=== PATIENT | male | born 1955 | race Caucasian/White ===

== ENCOUNTER 2018-08-05 09:08 | Outpatient (REF) | payer OTHER, SELFPAY ==
[2018-08-05 13:28] LABS: Anion Gap 5.6 mmol/L (3-11); BUN 22 mg/dL (7-18); CO2 30.4 mmol/L (21.0-32.0); CREATININE 0.94 mg/dL (0.70-1.30); Calcium 8.8 mg/dL (8.5-10.1); Chloride 104 mmol/L (98-107); Glucose 109 mg/dL (70-100); Potassium 4.1 mmol/L (3.5-5.1); Sodium 140 mmol/L (136-145)
== END 2018-08-05 09:28 ==
LOC: NCHCN 09:08
PROVIDERS: PCP Family Medicine; Visit Provider Family Medicine
DX: R73.01 Impaired fasting glucose (principal); I10 Essential (primary) hypertension
CPT/HCPCS: 80048

== ENCOUNTER 2018-12-28 16:15 | Emergency (ER) | payer OTHER, SELFPAY ==
[2018-12-28] VITALS (40 sets, daily range): BP systolic 118–149; BP diastolic 52–107; PULSE 63–95; RESP 10–23; TEMP 36.8–37.4; O2SAT 91–98
--- NOTE | 2018-12-28 16:11 | DI.RAD_ITS ---
SYMPTOM/DIAGNOSIS: JAW PAIN PA AND LATERAL CHEST: Comparison is made with 06/07/03. The heart is normal in size. The lungs are clear. The mediastinal structures and pleura appear intact. CONCLUSION: Normal chest.
[2018-12-28 16:27] LABS: Abs Immature Grans 0.01 k/cumm (0.0-0.09); Absolute Basophil Count 0.06 k/cumm (0.0-0.2); Absolute Eosinophil Count 0.14 k/cumm (0.0-0.7); Absolute Lymphocyte Count 2.67 k/cumm (1.2-3.4); Absolute Monocyte Count 1.09 k/cumm (0.11-0.7); Basophils % 0.9; Eosinophils % 2.1; HCT 42.1 % (40.0-50.0); HGB 14.6 g/dL (13.5-17.5); Immature Grans % 0.1; Lymphocytes % 39.4; Mean Corp. HGB Concentration 34.7 g/dL (32.0-36.0); Mean Corpuscular Hemoglobin 31.6 pg (27.0-33.0); Mean Corpuscular Volume 91.1 fL (80-95); Monocytes % 16.1; Neutrophils % 41.4; Platelet Count 276 x1000/uL (130-400); RBC 4.62 m/cumm (4.50-6.00); RBC Distribution Width 12.5 % (11.8-14.1); White Blood Cell Count 6.77 k/cumm (4.4-10.8)
--- NOTE | 2018-12-28 16:33 | W.ED.GENAD ---
Discharge Plan Disposition Patient Disposition: HOME Condition: Improving Discharge Details Chief Complaint: Chest Pain Clinical Impression: Epigastric abdominal pain, Jaw pain Primary Care Provider: Simon Casiano ED Provider: Maritza Monique Home Meds and New Rx's Prescriptions: Continued multivitamin 1 EACH tablet 1 tab PO DAILY RF: 0 ascorbic acid (vitamin C) [Vitamin C] 500 MG tablet 1 tab PO DAILY RF: 0 cholecalciferol (vitamin D3) 1,000 UNIT capsule 1 cap PO DAILY RF: 0 omega-3 fatty acids-fish oil [Fish Oil] 1 EACH capsule 1 cap PO DAILY RF: 0 Glucosamine Sulf-Chondroitin 1 EACH capsule 1 cap PO DAILY RF: 0 Vitamin B 12 1 cap PO DAILY RF: 0 amlodipine 10 mg Tablet 10 mg PO DAILY RF: 0 hydrochlorothiazide 12.5 mg Tablet 12.5 mg PO DAILY RF: 0 Discharge Instructions Instructions: Epigastric Pain (ED) Additional Instructions: Follow-up with your scheduled appointment with your primary care doctor this week for reevaluation and to discuss plan for outpatient stress test. Return immediately to the emergency department if you develop any worsening or new concerning symptoms. Discharge Data Discharge Date/Time-TO BE ENTERED AT DEPARTURE: 12/28/18 20:04 Discharge Physician: Maritza Monique Medical Decision Making 63-year-old male with a history of hypertension who presents with epigastric pain, heartburn and jaw pain that started while mowing the lawn today. Denies any symptoms at present. EKG done on arrival unremarkable. Vitals within normal limits. Patient appears nontoxic. Lungs clear to auscultation. Abdomen soft and nontender. Differential diagnosis includes ACS, gastritis, pancreatitis, GERD. Denies any tearing sensation so does not appear consistent with dissection. Complaint of the epigastric pain with heartburn appears more consistent with GI but the complaint of jaw pain is slightly more suspicious. Heart score 3. Patient was offered admission but declines and states he would rather go home. Cardiac work-up ordered on arrival and unremarkable. We will plan for second troponin and observation. 184 --patient is requesting to go home. Labs and imaging reviewed and unremarkable. Troponin negative. Lipase within normal limits. Chest x-ray negative. Patient denies any complaint of jaw pain, chest pain, abdominal pain or shortness of breath. Discussed with patient it would be recommended to obtain a a second troponin and he is agreeable if we obtain it at this time. This will be a 3-hour troponin so this could be reasonable at this time. Discussed with patient the risks of and disability due to a cardiac etiology and he fully understands and would still like to leave if second troponin negative. 1945 --second troponin negative. Repeat EKG unchanged. Patient denies any acute complaints. Offered to place an order for an outpatient stress test but patient declines and states he will follow-up with the scheduled appointment with his primary care doctor this week and discuss plans for outpatient stress test. Medical Records Medical records reviewed: Yes I reviewed the patient's medical records. Imaging Data Radiologic Study: Radiologist's impression: XR Chest, 2 Views EXAM DATE/TIME: 12/28/2018 4:44 PM CLINICAL HISTORY: 63 years old, male; Pain; Chest pressure TECHNIQUE: Imaging protocol: XR of the chest, 2 views. COMPARISON: CR CHEST 2 VIEWS PA,LAT 06/07/2013 5:58 PM FINDINGS: Lungs: Unremarkable. No consolidation. Pleural space: Unremarkable. No pleural effusion. No pneumothorax. Heart/Mediastinum: Unremarkable. No cardiomegaly. Bones/joints: Unremarkable. IMPRESSION: No acute findings. Lab Data Lab results reviewed: Yes I reviewed the patient's lab results. Laboratory Tests Range/Units 12/28/18 12/28/18 12/28/18 16:19 16:19 16:19 WBC (4.4-10.8) k/cumm 6.77 RBC (4.50-6.00) m/cumm 4.62 Hgb (13.5-17.5) g/dL 14.6 Hct (40.0-50.0) % 42.1 MCV (80-95) fL 91.1 MCH (27.0-33.0) pg 31.6 MCHC (32.0-36.0) g/dL 34.7 RDW (11.8-14.1) % 12.5 Plt Count (130-400) x1000/uL 276 MPV (8.0-11.0) fL 9.0 Immature Gran % 0.1 Neutrophils % 41.4 Lymphocytes % 39.4 Monocytes % 16.1 Eosinophils % 2.1 Basophils % 0.9 Absolute Neutrophils (1.2-6.7) k/cumm 2.80 Absolute Lymphocytes (1.2-3.4) k/cumm 2.67 Absolute Monocytes (0.11-0.7) k/cumm 1.09 H Absolute Eosinophils (0.0-0.7) k/cumm 0.14 Absolute Basophils (0.0-0.2) k/cumm 0.06 Sodium (136-145) mmol/L 139 Potassium (3.5-5.1) mmol/L 3.6 Chloride (98-107) mmol/L 103 Carbon Dioxide (21.0-32.0) mmol/L 28.1 Anion Gap (3-11) mmol/L 7.9 BUN (7-18) mg/dL 17 Creatinine (0.70-1.30) mg/dL 0.94 Estimated GFR/1.73 m2 (mL/min/1.73m2) >= 60.00 Glucose (70-100) mg/dL 130 H Calcium (8.5-10.1) mg/dL 9.0 Magnesium (1.8-2.4) mg/dL 2.1 Total Bilirubin (0.2-1.0) mg/dL 0.3 AST (15-37) U/L 15 ALT (12-78) U/L 38 Alkaline Phosphatase (46-116) U/L 68 Troponin I (0.00-0.06) ng/mL < 0.02 Total Protein (6.4-8.2) g/dL 7.7 Albumin (3.4-5.0) g/dL 3.9 Lipase (73-393) U/L 156 Range/Units 12/28/18 12/28/18 19:10 20:20 WBC (4.4-10.8) k/cumm RBC (4.50-6.00) m/cumm Hgb (13.5-17.5) g/dL Hct (40.0-50.0) % MCV (80-95) fL MCH (27.0-33.0) pg MCHC (32.0-36.0) g/dL RDW (11.8-14.1) % Plt Count (130-400) x1000/uL MPV (8.0-11.0) fL Immature Gran % Neutrophils % Lymphocytes % Monocytes % Eosinophils % Basophils % Absolute Neutrophils (1.2-6.7) k/cumm Absolute Lymphocytes (1.2-3.4) k/cumm Absolute Monocytes (0.11-0.7) k/cumm Absolute Eosinophils (0.0-0.7) k/cumm Absolute Basophils (0.0-0.2) k/cumm Sodium (136-145) mmol/L Potassium (3.5-5.1) mmol/L Chloride (98-107) mmol/L Carbon Dioxide (21.0-32.0) mmol/L Anion Gap (3-11) mmol/L BUN (7-18) mg/dL Creatinine (0.70-1.30) mg/dL Estimated GFR/1.73 m2 (mL/min/1.73m2) Glucose (70-100) mg/dL Calcium (8.5-10.1) mg/dL Magnesium (1.8-2.4) mg/dL Total Bilirubin (0.2-1.0) mg/dL AST (15-37) U/L ALT (12-78) U/L Alkaline Phosphatase (46-116) U/L Troponin I (0.00-0.06) ng/mL < 0.02 Cancelled Total Protein (6.4-8.2) g/dL Albumin (3.4-5.0) g/dL Lipase (73-393) U/L ECG Data Attestation: I personally reviewed and interpreted this ECG (s) as follows: Interpretation: #1: 1620 --rate of 90, sinus, no acute ST elevation or depression. QTc 433. QRS 96 #2: 1925 --rate of 63, sinus, no acute ST elevation or depression. QTc 428. QRS 96 HPI General Mode of arrival: ambulatory. Date/Time Provider Initiated Documentation: 12/28/18 16:31. Limitations to Documentation: no limitations. Information obtained by: patient. HPI Narrative: Patient is a 63-year-old male with a history of hypertension who presents with epigastric pain and jaw pain that started while mowing the lawn today. Patient states he ate a lunch and went to mow the lawn and states he bent over a tree forward in his upper abdomen and stood up and developed heartburn. He states the symptoms were aching and burning in his epigastric region but denies any radiation to the chest. He states this heartburn lasted approximately 20 to 30 minutes and then resolved. He states shortly after the time of onset of heartburn, he developed jaw discomfort. He states this is now resolved. He denies any fever, coughing, shortness of breath, nausea, vomiting, dizziness, recent illness. He states he drinks 2-3 beers 3-4 times weekly and that he last had a 12 pack of alcohol last night. He denies any history of a stress test. Related Data Home Medications Medication Instructions Recorded Confirmed Glucosamine Sulf-Chondroitin 1 cap PO DAILY 06/07/13 12/28/18 Vitamin B 12 1 cap PO DAILY 06/07/13 12/28/18 ascorbic acid (vitamin C) [Vitamin 1 tab PO DAILY 06/07/13 12/28/18 C] cholecalciferol (vitamin D3) 1 cap PO DAILY 06/07/13 12/28/18 multivitamin 1 tab PO DAILY 06/07/13 12/28/18 omega-3 fatty acids-fish oil [Fish 1 cap PO DAILY 06/07/13 12/28/18 Oil] amlodipine 10 mg PO DAILY 12/28/18 12/28/18 hydrochlorothiazide 12.5 mg PO DAILY 12/28/18 12/28/18 Allergies Allergy/AdvReac Type Severity Reaction Status Date / Time No Known Allergies Allergy Unverified 06/07/13 17:02 General Stated Complaint: Chest Pain ALL: 2 Review of Systems Review of Systems All systems reviewed & are unremarkable except as noted in HPI and below Constitutional Reports as per HPI, Denies chills and Denies fever(s) Eyes Denies blurry vision ENT Denies dizziness, Denies sore throat and Denies throat swelling Cardiovascular Denies chest pain and Denies dyspnea Respiratory Denies cough and Denies dyspnea Gastrointestinal Reports abdominal pain, Denies diarrhea and Denies vomiting Genitourinary Denies hematuria and Denies dysuria Musculoskeletal Denies back pain and Denies numbness Integumentary/Breasts Denies lesions and Denies rash Neurologic Denies dizziness, Denies focal weakness and Denies numbness Allergic/Immunologic Denies throat swelling [facility] Medical History HTN (hypertension) (Chronic) Surgical History Fingertip amputation (Acute) Social History Smoking/Tobacco Use Status: Former Tobacco Use Alcohol Intake: current Alcohol Intake frequency: a few times a week Alcohol type: beer Drug use: Never Substance use type: does not use Exam Const General: cooperative, healthy appearing and no acute distress HENMT Head: normal to inspection Ears: hearing grossly normal bilaterally and external ears normal General nose exam: external nose normal Face and sinus: normal facial exam and no tenderness Mouth: oral mucosae normal Eyes General: appearance normal, both eyes and all related structures EOM: EOM intact bilaterally Neck Neck: normal visual inspection and No submandibular swelling Lymphatic: no lymphadenopathy noted Chest Chest: normal inspection of the chest and no tenderness Resp Effort & Inspection: normal respiratory effort and able to speak in complete sentences Auscultation: clear to auscultation bilaterally Cardio Rate: regular rate Rhythm: regular rhythm GI Inspection: normal to inspection Palpation: soft, not firm, not rigid and nontender Auscultation: normal bowel sounds Skin General skin exam: no rashes or lesions noted Neuro General: alert, awake and oriented x3 Cognition: normal cognition Speech: speech normal Motor: muscle tone normal throughout Sensory Exam: no sensory deficits noted Extrem General: normal to inspection, full ROM and no edema Psych Appearance: grossly normal Mental Status: mental status grossly normal Speech and Movement: speech and movement normal Affect: normal affect Course Vital Signs Temperature 99.3 F 12/28/18 16:14 Pulse 95 H 12/28/18 16:14 Respiratory Rate 18 12/28/18 16:14 Blood Pressure 130/107 H 12/28/18 16:14 Pulse Oximetry 95 12/28/18 16:14 Temperature 99.3 F 12/28/18 16:14 Temperature Source Skin 12/28/18 16:14 Pulse 95 H 12/28/18 16:14 Respiratory Rate 18 12/28/18 16:14 Respiratory Effort Non-Labored 12/28/18 16:27 Blood Pressure 130/107 H 12/28/18 16:14 Blood Pressure Position Sitting 12/28/18 16:14 Pulse Oximetry 95 12/28/18 16:14 Oxygen Delivery Method Room Air 12/28/18 16:14 Oxygen Flow Rate 0 12/28/18 16:14 Pain Level 0 12/28/18 16:14 Lab/Test Results Lab/Test Results: Laboratory Tests Range/Units 12/28/18 16:19 WBC (4.4-10.8) k/cumm 6.77 RBC (4.50-6.00) m/cumm 4.62 Hgb (13.5-17.5) g/dL 14.6 Hct (40.0-50.0) % 42.1 MCV (80-95) fL 91.1 MCH (27.0-33.0) pg 31.6 MCHC (32.0-36.0) g/dL 34.7 RDW (11.8-14.1) % 12.5 Plt Count (130-400) x1000/uL 276 MPV (8.0-11.0) fL 9.0 Immature Gran % 0.1 Neutrophils % 41.4 Lymphocytes % 39.4 Monocytes % 16.1 Eosinophils % 2.1 Basophils % 0.9 Absolute Neutrophils (1.2-6.7) k/cumm 2.80 Absolute Lymphocytes (1.2-3.4) k/cumm 2.67 Absolute Monocytes (0.11-0.7) k/cumm 1.09 H Absolute Eosinophils (0.0-0.7) k/cumm 0.14 Absolute Basophils (0.0-0.2) k/cumm 0.06
[2018-12-28 16:43] LABS: ALT 38 U/L (12-78); AST 15 U/L (15-37); Albumin 3.9 g/dL (3.4-5.0); Alkaline Phosphatase 68 U/L (46-116); Anion Gap 7.9 mmol/L (3-11); BUN 17 mg/dL (7-18); Bilirubin, Total 0.3 mg/dL (0.2-1.0); CO2 28.1 mmol/L (21.0-32.0); CREATININE 0.94 mg/dL (0.70-1.30); Chloride 103 mmol/L (98-107); Glucose 130 mg/dL (70-100); Magnesium 2.1 mg/dL (1.8-2.4); Potassium 3.6 mmol/L (3.5-5.1); Sodium 139 mmol/L (136-145); Total Protein 7.7 g/dL (6.4-8.2)
[2018-12-28 16:47] LABS: Troponin I < 0.02 ng/mL (0.00-0.06)
[2018-12-28 17:09] LABS: Lipase 156 U/L (73-393)
--- NOTE | 2018-12-28 17:13 | DI.VRAD_ITS ---
EXAM: XR Chest, 2 Views EXAM DATE/TIME: 12/28/2018 4:44 PM CLINICAL HISTORY: 63 years old, male; Pain; Chest pressure TECHNIQUE: Imaging protocol: XR of the chest, 2 views. COMPARISON: CR CHEST 2 VIEWS PA,LAT 06/07/2013 5:58 PM FINDINGS: Lungs: Unremarkable. No consolidation. Pleural space: Unremarkable. No pleural effusion. No pneumothorax. Heart/Mediastinum: Unremarkable. No cardiomegaly. Bones/joints: Unremarkable. IMPRESSION: No acute findings. Dictated and Authenticated by: Radha Foreman MD. Ordering:ELVIRA Salas MD
[2018-12-28 19:33] LABS: Troponin I < 0.02 ng/mL (0.00-0.06)
== END 2018-12-28 20:04 | disposition home or self-care (01) ==
PROVIDERS: Emergency Provider Physician Assistant; PCP Family Medicine
DX: R10.13 Epigastric pain (principal); R68.84 Jaw pain; I10 Essential (primary) hypertension
CPT/HCPCS: 36415; 80053; 83690; 93005; 99285; 71046; 83735; 84484; 85025; 93010

== ENCOUNTER 2019-01-01 11:28 | Outpatient (REF) | payer OTHER, SELFPAY ==
[2019-01-01 15:06] LABS: Calculated LDL 155; Cholesterol 211 mg/dL (50-200); HDL Cholesterol 40 mg/dL (40-60); Triglyceride 81 mg/dL (30-150)
== END 2019-01-01 11:48 ==
LOC: NCHCN 11:28
PROVIDERS: PCP Family Medicine; Visit Provider Family Medicine
DX: E78.5 Hyperlipidemia, unspecified (principal)
CPT/HCPCS: 80061; 83721

== ENCOUNTER 2020-02-02 19:25 | Outpatient (REF) | payer OTHER, SELFPAY ==
[2020-02-02 21:37] LABS: Anion Gap 9.3 mmol/L (3-11); BUN 19 mg/dL (7-18); CO2 26.7 mmol/L (21.0-32.0); CREATININE 0.82 mg/dL (0.70-1.30); Calcium 8.7 mg/dL (8.5-10.1); Calculated LDL 68 mg/dL (<100); Chloride 106 mmol/L (98-107); Cholesterol 115 mg/dL (<200); Glucose 138 mg/dL (74-106); HDL Cholesterol 36 mg/dL (40-60); Sodium 142 mmol/L (136-145); Triglyceride 55 mg/dL (<150)
[2020-02-04 09:22] LABS: PSA, Screening 1.9 ng/mL (0.0-4.5)
== END 2020-02-02 19:45 ==
LOC: NCHCN 19:25
PROVIDERS: PCP Family Medicine; Visit Provider Family Medicine
DX: Z00.00 Encounter for general adult medical examination without abnormal findings (principal); E78.5 Hyperlipidemia, unspecified; Z12.5 Encounter for screening for malignant neoplasm of prostate
CPT/HCPCS: 80048; 80061; 84153

== ENCOUNTER 2020-06-02 13:29 | Outpatient (REF) | payer OTHER, SELFPAY ==
[2020-06-06 14:26] LABS: Patient Race White; SARS-CoV-2 RNA Undetected (Undetected); SARS-CoV-2 Specimen Source Nasal
== END 2020-06-02 13:49 ==
LOC: NCHCN 13:29
PROVIDERS: PCP Family Medicine; Visit Provider Family Medicine
DX: Z20.828 Contact with and (suspected) exposure to other viral communicable diseases (principal)
CPT/HCPCS: U0003

== ENCOUNTER 2021-08-22 14:08 | Outpatient (REF) | payer OTHER, SELFPAY ==
[2021-08-22 17:50] LABS: Anion Gap 12.3 mmol/L (3-11); BUN 15 mg/dL (7-18); CO2 25.7 mmol/L (21.0-32.0); CREATININE 0.8 mg/dL (0.70-1.30); Calcium 9.4 mg/dL (8.5-10.1); Chloride 102 mmol/L (98-107); Glucose 133 mg/dL (74-106); Sodium 140 mmol/L (136-145)
[2021-08-23 17:40] LABS: PSA, Screening 2.2 ng/mL (0.0-4.5)
== END 2021-08-22 14:09 | disposition home or self-care (01) ==
LOC: LBN 14:08
PROVIDERS: PCP Family Medicine; Visit Provider Family Medicine
DX: Z00.00 Encounter for general adult medical examination without abnormal findings (principal); Z12.5 Encounter for screening for malignant neoplasm of prostate
CPT/HCPCS: 80048; 84153

== ENCOUNTER 2022-07-19 07:36 | Day surgery (SDC) | payer OTHER, SELFPAY ==
[2022-07-19 07:49] VITALS: BP 146/82; PULSE 110; RESP 18; TEMP 36.6; O2SAT 97
[2022-07-19] MEDS: Lactated Ringers 1,000 ML 80 ML IV (08:05)
--- NOTE | 2022-07-19 09:08 | W.ANESPRE ---
General Info Date of Service Date Performed: 07/19/22 Height: 5 ft 4 in Weight: 81.8 kg Body Mass Index (BMI): 30.9 Surgical Procedure: Operation Date: 07/19/22 09:35 Proposed Procedure Side Surgeon p Colonoscopy Rudi Gaxiola MD Actual Procedure Side Surgeon p Colonoscopy Not Applicable Rudi Gaxiola MD Meds Allergies and Home Medications Allergies Allergy/AdvReac Type Severity Reaction Status Date / Time No Known Allergies Allergy Unverified 07/06/22 08:12 Home Medication Medication Instructions Recorded Vitamin B 12 1 cap PO DAILY 06/07/13 ascorbic acid (vitamin C) 500 mg 1 tab PO DAILY 06/07/13 tablet (Vitamin C) cholecalciferol (vitamin D3) 25 1 cap PO DAILY 06/07/13 mcg (1,000 unit) capsule glucosamine sulfate dipotassium Cl 1 cap PO DAILY 06/07/13 500 mg-chondroitin 400 mg capsule (Glucosamine Sulfate 2 KCL-Chondroitin) multivitamin 1 tab PO DAILY 06/07/13 omega-3 fatty acids-fish oil 340 1 cap PO DAILY 06/07/13 mg-1,000 mg capsule (Fish Oil) amlodipine 10 mg tablet 10 mg PO DAILY 12/28/18 acetaminophen 325 mg tablet 325 mg PO ONCE PRN 11/04/21 (Tylenol) atorvastatin 20 mg tablet 20 mg PO DAILY 11/04/21 hydrochlorothiazide 12.5 mg tablet 25 mg PO DAILY 11/04/21 ibuprofen 200 mg capsule 400 mg PO Q8H PRN 11/04/21 psyllium husk 0.4 gram capsule 0.4 g PO DAILY 11/04/21 (Fiber (psyllium husk)) saw palmetto 450 mg capsule 450 mg PO DAILY 11/04/21 sildenafil 50 mg tablet 50 mg PO DAILY PRN 11/04/21 tamsulosin 0.4 mg capsule 0.4 mg PO DAILY 11/04/21 vitamin A-vitamin C-vit E-min 1 tab PO DAILY 11/04/21 tablet bisacodyl 5 mg tablet,delayed 5 mg PO ONCE #4 tabs 07/06/22 release (Dulcolax (bisacodyl)) polyethylene glycol 3350 17 17 g PO ONCE #238 grams 07/06/22 gram/dose oral powder Current Visit Medications: Current Medications Generic Name Dose Route Start Last Admin Trade Name Freq PRN Reason Stop Dose Admin Ringer's Solution 1,000 mls @ 80 mls/hr 07/19/22 06:00 07/19/22 08:05 IV 08/17/22 23:59 80 mls/hr INFUSION JESSICA Administration IV Miscellaneous Supplies 1 each 07/19/22 06:00 Iv Access IV 08/17/22 23:59 DIRECTED JESSICA Sodium Chloride 0 ml 07/19/22 06:00 Normal Saline Flush 10 Ml Syr IV 08/17/22 23:59 PRN PRN Sodium Chloride 0 ml 07/19/22 06:00 Normal Saline 10 Ml Vial IJ 08/17/22 23:59 DIRECTED PRN Sterile Water 0 ml 07/19/22 06:00 Water,Injection,Sterile 10 Ml Vial IJ 08/17/22 23:59 DIRECTED PRN PFSH Active Problems Active Problems: Problem Status Onset Code Screening for colon cancer Z12.11 Medical History Medical History Arthritis of right foot BMI 31.0-31.9,adult Dyslipidemia Enlarged prostate Erectile dysfunction HTN (hypertension) Prediabetes Surgical History Surgical History Fingertip amputation History of colonoscopy Tobacco Smoking/Tobacco Use Status: Former Tobacco Use Alcohol Alcohol Intake: current Alcohol intake frequency: a few times a week Alcohol type: beer Substance Use Substance use: Never Substance use type: does not use Details: Smokes and edibles Vital Signs and Lab Results Vital Signs Most Recent Vital Signs in EMR: Most Recent Vital Signs Temp Pulse Resp BP Pulse Ox 36.6 C 110 H 18 146/82 H 97 07/19/22 07:49 07/19/22 07:49 07/19/22 07:49 07/19/22 07:49 07/19/22 07:49 Vital Signs Comment Vital Signs Comment:: HR reassessed at bedside during preoperative interview, 90 bpm Lab Results Blood Type / Crossmatch: No Data to Display Complete Blood Count: No Data to Display Complete Metabolic Panel: No Data to Display Liver Function Panel: No Data to Display Coagulation Panel: No Data to Display Cardiac Panel: No Data to Display Arterial Blood Gas: No Data to Display Venous Blood Gas: No Data to Display Pancreas Panel: No Data to Display Thyroid Panel: No Data to Display Infectious Disease: No Data to Display Blood Cultures: No Data to Display Toxicology Panel: No Data to Display Anesthesia Assessment and Plan Anesthesia History Personal History: No History of Anesthesia Complications Family History: No Family History of Anesthesia Complications Exercise Tolerance Exercise Tolerance: Metabolic Equivalents>4 Pertinent Negatives Pertinent Negatives: No Symptoms of GERD, No Major Cardiovascular Symptoms or Complaints and No Major Pulmonary Symptoms or Complaints Cardiac & Pulmonary Exam Cardiac Exam: Normal S1/S2 Heart Sounds Pulmonary Exam: Clear Bilateral Breath Sounds Implantable Cardiac Device Does patient have a Pacemaker or an ICD?: No Airway Exam Known Difficult Airway: No Mallampati Class: 2 Mouth Opening: Normal (> 3cm) Thyromental Distance: Greater than 3 cm Neck Range of Motion: Full ROM Neck Circumference: Normal Teeth Condition: Normal Dentition ASA Classification ASA Score: ASA 2 Emergency Case?: No NPO Status NPO Status: NPO Clears >2 hours, Solids >8 hours Anesthesia Plan Resuscitation Status: Full Code Anesthesia Technique: General Anesthesia Airway Planned: Natural Airway Monitors Used: Standard Monitors
[2022-07-19 09:11] VITALS: BMI 30.9
--- NOTE | 2022-07-19 09:45 | BOWEL_PTH ---
PATIENT: Dylan Tinoco LOC: [facility] U#:[id number] AGE/SX: 66/M ROOM: RE07/19/[address]: Rudi Gaxiola : 1955 BED: DIS: 07/19/2022 SPEC #: [id number] RECD: 07/19/22 14:28 STATUS: ANIA REQ #: [id number] GIANLUCA: 07/19/22 09:[address]: Rudi Gaxiola DEPT: Surgical Specimen RECD BY: Christine Mckeon ENTERED: 07/19/22 14:29 SP TYPE: Bowel OTHR DR: Simon Casiano Tissues: 1 - BIOPSY BOWEL Procedures: GROSS AND MICRO LEVEL 4 Comments: [id number]
[2022-07-19 10:00] VITALS: BP 105/70; PULSE 92; RESP 16; TEMP 36.7; O2SAT 93
--- NOTE | 2022-07-19 10:06 | W.COLOREPORT ---
Date of service: 07/19/22 Time of Service: 10:06 Colonoscopy Report Procedure Description: Procedures performed: 1. Colonoscopy with snare polypectomy x1 2. Ablation/destruction/fulguration of polyps x5 Preoperative diagnosis: Surveillance colonoscopy Postoperative diagnosis: Colon polyps, Severe gabriel-diverticulosis, sigmoid fibrosis/stenosis, grade 1-2 internal hemorrhoids Surgeon: Johnathan Gaxiola Anesthesia: Madelyn Indication for procedure: Patient is a 66-year-old man with no significant family history and reportedly no symptoms. His last colonoscopy was 12 years ago and only diverticular findings were reported - no polyps. Findings: Diverticular changes are present throughout the entire colon. They are severe throughout the sigmoid region. There is a 10-15 cm segment that is severely tight/twisted/fibrotic and stenotic that was quite difficult to navigate. There was no evidence of SCAD or active diverticulitis at this location. A 3 - 5 mm sessile polyp was removed with hot snare technique. 5 small 2-3 mm flat polyps were burned/ablated with the tip of the hot snare in the rectum.? ? Grade 1-2 internal hemorrhoids were noted on retroflexion. Surveillance/follow-up recommendations: Colorectal cancer surveillance standpoint repeat colonoscopy in 7-10 years as long as histology on the polyp is not SSA or the villous(not suspected). Separately, if he is truly asymptomatic, nothing further needs to be done about his diverticular disease however if he has chronic abdominal discomfort/bloating and/or frequent attacks of abdominal discomfort he should consider an elective sigmoid resection because of the severity of disease seen today. Complications: None Blood loss: Minimal Procedure in detail: Written consent was obtained from the patient who was in agreement with the risks, benefits and indications of the procedure.? We went to the endoscopy suite and laid the patient in left lateral decubitus position.? Anesthesia was administered which was tolerated well.? A timeout was performed and when we are all in agreement we began the procedure. Digital rectal exam and visual examination was performed and within normal limits.? A well?lubricated colonoscope was advanced without difficulty all the way to the cecum identified by the ileocecal valve, and triangular folds and appendiceal orifice.? It was then slowly withdrawn.?? Retroflexion was performed in the rectum.? The findings/interventions are noted above. The scope was then removed and the patient tolerated the procedure well and was then taken back to the PACU in hemodynamically stable condition.
[2022-07-19 10:30] VITALS: BP 105/63; PULSE 80; RESP 16; TEMP 36.2; O2SAT 97
--- NOTE | 2022-07-19 11:54 | W.ANESPOSTOP ---
Postoperative Evaluation Date, Time and Location Date Performed: 07/19/22 Time Performed: 10:08 Patient Location: Day Surgery Unit Vital Signs Most Recent Imported Vital Signs: Most Recent Vital Signs Temp Pulse Resp BP Pulse Ox 36.2 C L 80 16 105/63 97 07/19/22 10:30 07/19/22 10:30 07/19/22 10:30 07/19/22 10:30 07/19/22 10:30 Pain Score Most Recent Pain Score: Most Recent Pain Score Pain Level 0 07/19/22 10:30 Assessment Mental Status: Awake (Alert & Oriented to Patient Baseline) Airway and Respiratory Function: Patent airway with normal (patient baseline) respiratory exam Cardiovascular Function: Hemodynamically Stable Hydration Status: Adequately Hydrated Nausea & Vomiting: No Nausea or Vomiting Pain: Pt. Denies Any Pain Peripheral Nerve Block: Patient did not receive a nerve block
== END 2022-07-19 10:55 | disposition home or self-care (01) ==
PROVIDERS: PCP Family Medicine; Visit Provider Student in an Organized Health Care Education/Training Program
PROC: 0DJD8ZZ Inspection of Lower Intestinal Tract, Via Natural or Artificial Opening Endoscopic (ICD-10-PCS; CPT 45378; principal; 2022-07-19 09:30)
DX: Z12.11 Encounter for screening for malignant neoplasm of colon (principal); K57.30 Diverticulosis of large intestine without perforation or abscess without bleeding; K63.5 Polyp of colon; K62.1 Rectal polyp; K56.609 Unspecified intestinal obstruction, unspecified as to partial versus complete obstruction
CPT/HCPCS: 45385; 45384; 88305

== ENCOUNTER 2022-11-21 15:01 | Outpatient (REF) | payer OTHER, SELFPAY ==
[2022-11-21 19:06] LABS: Anion Gap 6.5 mmol/L (3-11); BUN 13 mg/dL (7-18); CO2 30.5 mmol/L (21.0-32.0); CREATININE 0.8 mg/dL (0.70-1.30); Calcium 9.4 mg/dL (8.5-10.1); Chloride 104 mmol/L (98-107); Estimated GFR 98.21 (mL/min/1.73m2); Glucose 91 mg/dL (74-106); Potassium 3.9 mmol/L (3.5-5.1); Sodium 141 mmol/L (136-145)
[2022-11-22 18:26] LABS: PSA, Screening 2.2 ng/mL (<=4.5)
== END 2022-11-21 15:02 | disposition home or self-care (01) ==
LOC: NCHCN 15:01
PROVIDERS: PCP Family Medicine; Visit Provider Family Medicine
DX: Z00.00 Encounter for general adult medical examination without abnormal findings (principal); I10 Essential (primary) hypertension; Z12.5 Encounter for screening for malignant neoplasm of prostate
CPT/HCPCS: 80048; 84153

== ENCOUNTER 2024-03-27 13:09 | Outpatient (REF) | payer MEDICARE, BC, SELFPAY ==
[2024-03-27 15:56] LABS: BUN 20 mg/dL (7-18); CREATININE 0.8 mg/dL (0.70-1.30); Calcium 9.5 mg/dL (8.5-10.1); Chloride 102 mmol/L (98-107); Estimated GFR 97.61 (mL/min/1.73m2); Glucose 128 mg/dL (74-106); Magnesium 2.3 mg/dL (1.8-2.4); Potassium 3.7 mmol/L (3.5-5.1); Sodium 139 mmol/L (136-145); Vitamin D 25 Total 55.1 ng/mL (30-100)
== END 2024-03-27 13:10 | disposition home or self-care (01) ==
LOC: NCHCN 13:09
PROVIDERS: PCP Family Medicine; Visit Provider Student in an Organized Health Care Education/Training Program
DX: E55.9 Vitamin D deficiency, unspecified (principal); I10 Essential (primary) hypertension
CPT/HCPCS: 80048; 82306; 83735

== ENCOUNTER 2024-09-24 16:07 | Outpatient (REF) | payer MEDICARE, BC, SELFPAY ==
[2024-09-24 16:43] LABS: Calculated LDL 78 mg/dL (<100); Cholesterol 138 mg/dL (<200); HDL Cholesterol 45 mg/dL (>or=40); Triglyceride 76 mg/dL (<150)
[2024-09-24 17:29] LABS: COMMENT (LAB VIEW ONLY) 129.31 mg/dL; Microalb ug/mg Crea 9.6 ug/mg Cr
== END 2024-09-24 16:08 | disposition home or self-care (01) ==
LOC: NCHCN 16:07
PROVIDERS: PCP Family Medicine; Visit Provider Student in an Organized Health Care Education/Training Program
DX: E78.5 Hyperlipidemia, unspecified (principal); E11.9 Type 2 diabetes mellitus without complications
CPT/HCPCS: 80061; 82043; 82570

== ENCOUNTER 2025-01-19 17:24 | Outpatient (REF) | payer MEDICARE, BC, SELFPAY ==
[2025-01-19 15:23] LABS: Abs Immature Grans 0.01 10^3/uL (0.0-0.06); Absolute Basophil Count 0.06 10^3/uL (0.0-0.2); Absolute Eosinophil Count 0.02 10^3/uL (0.0-0.7); Absolute Lymphocyte Count 2.97 10^3/uL (1.2-3.4); Absolute Monocyte Count 1.06 10^3/uL (0.1-0.8); Absolute Neutrophil Count 3.38 10^3/uL (1.2-6.7); Basophils % 0.8 %; Eosinophils % 0.3 %; HGB 13.6 g/dL (13.5-17.5); Immature Grans % 0.1 %; Lymphocytes % 39.6 %; MCH 30.6 pg (27.0-33.0); MCV 90 fL (80-95); MPV 10.2 fL (8.0-11.0); Monocytes % 14.1 %; Neutrophils % 45.1 %; Platelet Count 171 10^3/uL (130-400); RBC 4.45 10^6/uL (4.36-5.78); RDW 12.8 % (11.8-14.1); RDW-SD 42.2 fL
[2025-01-19 15:50] LABS: ALT 36 U/L (16-63); AST 19 U/L (15-37); Albumin 3.7 g/dL (3.4-5.0); Alkaline Phosphatase 95 U/L (46-116); Anion Gap 11.4 mmol/L (3-11); BUN 14 mg/dL (7-18); Bilirubin, Total 0.7 mg/dL (0.2-1.0); CO2 25.6 mmol/L (21.0-32.0); CREATININE 0.7 mg/dL (0.70-1.30); Calcium 8.7 mg/dL (8.5-10.1); Chloride 103 mmol/L (98-107); Estimated GFR 100.99 (mL/min/1.73m2); Glucose 150 mg/dL (74-106); Potassium 3.8 mmol/L (3.5-5.1); Sodium 140 mmol/L (136-145); Total Protein 7.2 g/dL (6.4-8.2)
[2025-01-20 11:00] LABS: Lyme Ab w Rflx to Lyme Confirm Positive (Negative)
[2025-01-20 12:33] LABS: Lyme IgG Ab Positive (Negative); Lyme IgM Ab Positive (Negative)
== END 2025-01-19 17:25 | disposition home or self-care (01) ==
LOC: LBN 17:24
PROVIDERS: PCP Family Medicine; Visit Provider Nurse Practitioner Family
DX: T14.90XA Injury, unspecified, initial encounter (principal); W57.XXXA Bitten or stung by nonvenomous insect and other nonvenomous arthropods, initial encounter
CPT/HCPCS: 80053; 86617; 85025; 86618

== ENCOUNTER 2025-05-28 12:03 | Outpatient (REF) | payer MEDICARE, BC, SELFPAY ==
[2025-05-28 15:30] LABS: Abs Immature Grans 0.01 10^3/uL (0.0-0.06); HCT 42.5 % (40.0-50.0); HGB 14.5 g/dL (13.5-17.5); Immature Grans % 0.1 %; MCH 31.5 pg (27.0-33.0); MCHC 34.1 % (32.0-36.0); MCV 92 fL (80-95); MPV 10.0 fL (8.0-11.0); Platelet Count 241 10^3/uL (130-400); RBC 4.61 10^6/uL (4.36-5.78); RDW 12.8 % (11.8-14.1); RDW-SD 43.5 fL; WBC 7.00 10^3/uL (4.4-10.8)
[2025-05-28 16:11] LABS: Anion Gap 8.6 mmol/L (3-11); BUN 17 mg/dL (7-18); CO2 26.4 mmol/L (21.0-32.0); Calcium 9.1 mg/dL (8.5-10.1); Chloride 107 mmol/L (98-107); Glucose 107 mg/dL (74-106); Potassium 4.3 mmol/L (3.5-5.1); Sodium 142 mmol/L (136-145); TSH (W/Ref FT4) 0.56 uIU/mL (0.36-3.74)
[2025-05-28 22:43] LABS: PSA, Screening 2.7 ng/mL (<=4.5)
== END 2025-05-28 12:04 | disposition home or self-care (01) ==
LOC: NCHCN 12:03
PROVIDERS: PCP Family Medicine; Visit Provider Student in an Organized Health Care Education/Training Program
DX: I10 Essential (primary) hypertension (principal); Z12.5 Encounter for screening for malignant neoplasm of prostate
CPT/HCPCS: 80048; 84153; 84443; 85025